=== PATIENT | male | born 1985 | race Caucasian/White ===

== ENCOUNTER 2021-02-24 22:29 | Emergency (ER) | payer SELFPAY ==
[~2021-02-24] VITALS: Ht 172.7 cm; Wt 80.0 kg
[2021-02-24] MEDS ORDERED: NALOXONE HCL 1 MG/ML 2ML VIAL IM ONE (23:00)
[2021-02-24 23:29] VITALS: BP 151/87
[2021-02-24] MEDS ORDERED: NALO4SPR BOTHNSTRLS (23:39)
== END 2021-02-24 23:46 | disposition home or self-care (01) ==
LOC: ER 22:29
DX: T40.691A Poisoning by other narcotics, accidental (unintentional), initial encounter (principal); Y92.89 Other specified places as the place of occurrence of the external cause; G93.40 Encephalopathy, unspecified; F11.10 Opioid abuse, uncomplicated
CPT/HCPCS: 93005; 96372; 99283; J2310